=== PATIENT | male | born 1940 | race Caucasian/White ===

== ENCOUNTER 2022-10-25 12:49 | Outpatient (CLI) | payer MEDICARE, OTHER | END 2022-10-25 23:59 | disposition home or self-care (01) | LOC: RAD 12:49 | PROVIDERS: ATTEND Family Medicine | DX: R13.12 Dysphagia, oropharyngeal phase (principal); R13.14 Dysphagia, pharyngoesophageal phase; K21.9 Gastro-esophageal reflux disease without esophagitis | CPT/HCPCS: 74230 ==